=== PATIENT | male | born 1980 | race Caucasian/White ===

== ENCOUNTER 2025-10-10 09:46 | Emergency (ER) | payer SELFPAY ==
[~2025-10-10] VITALS: Ht 170.2 cm; Wt 74.0 kg
[2025-10-10 09:50] VITALS: BP 137/94; PULSE 88; RESP 16; TEMP 36.7; O2SAT 100; O2SAT 98
[2025-10-10 10:20] LABS: BASOPHILS % 1.1 % (0.0-2.0); EOSINOPHILS % 0.6 % (0.0-5.0); HEMATOCRIT. 45.7 % (42.0-52.0); HEMOGLOBIN. 15.6 g/dL (14.0-18.0); LYMPHOCYTES % 23.7 % (20.0-50.0); MEAN PLATELET VOLUME 8.4 fl (7.4-10.4); MONOCYTES % 5.4 % (2.0-8.0); NEUTROPHILS % 69.2 % (40.0-76.0); PLATELET 232 x1000/uL (130-400); RED BLOOD CELL COUNT 5.01 mill/uL (4.7-6.1); RED CELL DISTRIBUTION WIDTH 12.9 % (11.6-14.6)
[2025-10-10 10:34] LABS: CREATININE 0.9 mg/dL (0.6-1.3); UREA NITROGEN BLOOD 5 mg/dL (9-23)
[2025-10-10 10:35] LABS: TROPONIN I HIGH SENSITIVITY < 4 ng/L (3.0-53)
[2025-10-10] MEDS ORDERED: IBUP-1455 MT (11:18)
== END 2025-10-10 11:42 | disposition home or self-care (01) ==
LOC: ER 10:21
DX: R07.89 Other chest pain (principal); M79.605 Pain in left leg; M79.604 Pain in right leg
CPT/HCPCS: 36415; 71045; 80048; 84484; 85025; 93005; 99285